=== PATIENT | female | born 1955 | race Caucasian/White ===

== ENCOUNTER → 2022-09-24 | Outpatient (CLI) | payer MEDICARE, BC ==
--- NOTE | 2022-09-24 14:37 | US ---
EXAMINATION TYPE: US kidneys/renal and bladder DATE OF EXAM: 09/24/2022 COMPARISON: NONE CLINICAL HISTORY: R31.9 HEMATURIA. EXAM MEASUREMENTS: Right Kidney: 10.5 x 4.1 x 6.3 cm Left Kidney: 9.9 x 4.4 x 4.9 cm Right Kidney: No hydronephrosis or masses seen Left Kidney: No hydronephrosis or masses seen Bladder: wnl Bilateral Jets seen: Yes There is no evidence for hydronephrosis at this point in time. No nephrolithiasis is seen. No javad s are identified. The urinary bladder is anechoic. Bilateral ureteral jets are seen. IMPRESSION: Unremarkable study
== END | disposition home or self-care (01) ==
LOC: RADUSWWP 14:14
PROVIDERS: ATTEND Family Medicine
DX: R31.9 Hematuria, unspecified (principal)
CPT/HCPCS: 76770

== ENCOUNTER → 2023-03-31 | Outpatient (CLI) | payer MEDICARE, BC ==
--- NOTE | 2023-03-31 13:20 | CTL ---
EXAMINATION TYPE: CT Low Dose Lung DATE OF EXAM: 03/31/2023 12:51 PM CLINICAL INDICATION:Female, 67 years old with history of Z87.891 PERSONAL HISTORY OF NICOTINE DEPENDE NCE; Personal history of nicotine dependence , history of tobacco use. COMPARISON: None. TECHNIQUE: Multiple axial non-contrast scans were obtained from approximately the lung apices through the upper abdomen. Coronal and sagittal reformatted images were obtained. Low dose technique was uti lized. CT DLP: 65 mGycm, Automated exposure control for dose reduction was used. CT Contrast: Contrast used: None Oral contrast used: None FINDINGS: ======== Lack of intravenous contrast and low dose technique limits the evaluation of the vascular and soft ti ssue structures. LUNGS: No evidence of pulmonary fibrosis. No evidence of focal consolidation, pneumothorax or pleural effusion. Mild emphysema changes are seen throughout the lungs. Nodules: RUL: 4 mm pulmonary nodule series 3 image 122. RML: None. RLL: None. SHANE: Calcified granuloma series 3 image 88 measuring 4 mm. Elongated 4 x 3 mm pulmonary nodule se junaid 3 image 48, Additional other scattered sub-4 mm pulmonary nodules. LLL: None. AIRWAY: Patent and unremarkable. HEART: Size within normal limits. MEDIASTINUM: No gross evidence of adenopathy. VASCULATURE: No aortic aneurysm. MUSCULOSKELETAL: No acute osseous abnormalities SOFT TISSUES/LYMPH NODES: Unremarkable. LOWER NECK: No significant findings. UPPER ABDOMEN: No significant findings. IMPRESSION: 1. No clinically significant pulmonary nodules. One is noted 2. Mild emphysema CT LUNG RAD AND CT CHEST RECOMMENDATION: Lung-Rad 2 Benign Appearance or Behavior: Continue annual sc reening with LDCT in 12 months. S Modifier (other clinically significant findings): None Recommend smoking cessation (if current smoker), or continuation of smoking cessation (if prior smoke r). Annual screening for lung cancer with low-dose computed tomography is recommended in adults ages 55 to 77 years who have a 30 pack-year smoking history and currently smoke or have quit within the pa st 15 years. Screening should be discontinued once a person has not smoked for 15 years or develops a health problem that substantially limits life expectancy or the ability or willingness to have curat antonio lung surgery. Lung rads 2021 [email or web address]
== END | disposition home or self-care (01) ==
LOC: RADCTMAIN 12:14
PROVIDERS: ATTEND Family Medicine
DX: Z12.2 Encounter for screening for malignant neoplasm of respiratory organs (principal); J43.9 Emphysema, unspecified; F17.210 Nicotine dependence, cigarettes, uncomplicated
CPT/HCPCS: 71271

== ENCOUNTER → 2024-04-06 | Outpatient (CLI) | payer MEDICARE, BC ==
--- NOTE | 2024-04-06 17:22 | US ---
EXAMINATION TYPE: US thyroid st tissue head/neck DATE OF EXAM: 04/06/2024 COMPARISON: NONE CLINICAL INDICATION: Female, 68 years old with history of E04.1 NONTOXIC SINGLE THYROID NODULE; Follo w up thyroid nodules per patient. Not on meds. GLAND SIZE: Right Lobe: 4.8 x 1.7 x 1.4 cm Overall Parenchyma: homogeneous Left Lobe: 4.4 x 1.7 x 1.2 cm Overall Parenchyma: homogeneous Isthmus Thickness: 0.1 cm NODULES RIGHT: # of nodules measured on right: 2- largest measured 1. 1.3 X 1.0 x 0.8 cm, mid lateral, solid or almost completely solid, hypoechoic nodule, which is w ider than tall, with smooth margins, with echogenic foci. TR 5. Prior size: No prior here 2. 0.7 X 0.7 x 0.7 cm, lower medial, solid or almost completely solid, hypoechoic nodule, which is wider than tall, with smooth margins, with echogenic foci. TR 5. Prior size: No prior here LEFT: # of nodules measured on left: 1 1. 0.4 X 0.4 x 0.2 cm, lower lateral, solid or almost completely solid, hypoechoic nodule, which is wider than tall, with smooth margins, without echogenic foci. TR 4. Prior size: No prior here ISTHMUS: # of nodules measured in the isthmus: 1 1. 0.5 X 0.4 x 0.2 cm mixed cystic and solid, hypoechoic nodule, which is wider than tall, with smo oth margins, without echogenic foci. TR 3. Prior size: No prior here Bilateral neck scanned, no evidence of lymphadenopathy. IMPRESSION: Multinodular thyroid gland as described above. Correlation with prior imaging is recommended to asses s for interval change. If no previous sampling was performed, recommend FNA of right mid lateral TR 5 1.3 cm nodule. Additionally, follow-up ultrasound in one year is recommended.
== END | disposition home or self-care (01) ==
LOC: RADUSWWP 14:46
PROVIDERS: ATTEND Family Medicine
DX: Z12.2 Encounter for screening for malignant neoplasm of respiratory organs (principal); E04.1 Nontoxic single thyroid nodule
CPT/HCPCS: 76536

== ENCOUNTER → 2024-04-17 | Day surgery (SDC) | payer MEDICARE, BC ==
[2024-04-17 14:27] VITALS: RESP 18; TEMP 98
--- NOTE | 2024-04-17 21:00 | US ---
EXAMINATION TYPE: US FNA thyroid first lesion DATE OF EXAM: 04/17/2024 2:37 PM CLINICAL INDICATION:Female, 68 years old with history of E04.1 NONTOXIC SINGLE THYROID NODULE; thyroi d nodule. COMPARISON: Thyroid 04/06/2024 ATTENDING: Dr. Levy Scott PROCEDURE: Informed consent was obtained. The risks and benefits of the procedure were discussed with the patien t. The site was marked. Timeout procedure was performed Ultrasound imaging of the thyroid demonstrates right thyroid The patient was prepped, draped in the usual sterile fashion, and locally anesthetized with 1% lidoca ine. Five fine needle aspiration were then performed with a 25 gauge needle. [facility]. Patient tolerated the procedure without incident and wa s sent home in stable condition. IMPRESSION: Successful ultrasound guided fine needle aspiration.
[2024-04-18 09:43] VITALS: BP 130/78; PULSE 76
== END ==
LOC: RADPROMAIN 12:14
PROVIDERS: ATTEND Family Medicine
DX: E04.1 Nontoxic single thyroid nodule (principal)
CPT/HCPCS: 10005; 88173; 88305

== ENCOUNTER → 2025-05-17 | Outpatient (CLI) | payer BC, MEDICARE ==
--- NOTE | 2025-05-17 14:03 | CTL ---
EXAMINATION TYPE: CT Low Dose Lung DATE OF EXAM ORDERED: 05/17/2025 COMPARISON: 03/31/2023 CLINICAL INDICATION: Female, 69 years old with history of Z12.2 SCREENING; [facility], current smoker 1PPDx 47years., Lung cancer screening, History of Smoking/tobacco use. TECHNIQUE: Low dose computed tomography scan was performed through the chest at 1 mm thick sections a nd reconstructed images in multiple planes at 1 mm and [address] DLP: [address] CTDI: 1.57 mGy Automated exposure control for dose reduction was used. CT DIAGNOSTIC QUALITY: Satisfactory FINDINGS: Findings: There is a new pleural-based juxtapleural nodule in the right lower lobe posteriorly, 12.7 mm in grea test dimension. A second pleural parenchymal density is seen in the right lower lobe laterally. These most likely represent areas of pleural-parenchymal scarring possibly round atelectasis however they were not present on the prior study. Malignancy although felt to be less likely is not entirely exclu ded. There are single stable sub-5 mm nodules in the upper lobes. There are a few scattered micronodu les. There is no lung consolidation or abnormal interstitial density. There is no pleural effusion or pneumothorax. The great vessels and heart are normal in size. There is no mediastinal, hilar or axillary adenopathy. Limited scanning through the upper abdomen reveals no gross abnormality. There are no focal osseous lesions. IMPRESSION: 1. Lung RADS category 4B. 3 month follow-up CT thorax is recommended to confirm stability of the juxt apleural nodules in the right lung base.. 2. No acute cardiopulmonary disease. [facility], , 05/17/2025 2:00 PM
--- NOTE | 2025-05-21 09:59 | MM ---
Reason for Exam: Screening (asymptomatic). Last mammogram was performed 1 year(s) and 10 month(s) ago. Patient History: Menarche at age 18. First Full-Term at age 25. Left ovary removed at age 42. Right ovary removed at age 42. Hysterectomy at age 42. Postmenopausal. Mother had breast cancer, age 75. Risk Values: Shannon 5 year model risk: 3.0%. NCI Lifetime model risk: 9.9%. Prior Study Comparison: 03/21/2015 Bilateral Screening Mammogram, [facility]. 07/21/2023 Bilateral Screening Mammogram, [facility]. Tissue Density: The breasts are heterogeneously dense, which may obscure small masses. Findings: Analyzed By CAD. Right breast: There is no suspicious group of microcalcifications or new suspicious mass. Benign-appearing calcifications right breast. Left breast: There is no suspicious group of microcalcifications or new suspicious mass. Benign-appearing calcifications left breast. Overall Assessment: Benign, BI-RAD 2 Management: Screening Mammogram of both breasts in [address] [facility] will attempt to contact patient to return for supplemental views and ultrasound if indicated. Patient should continue monthly self-breast exams. A clinical breast exam by your physician is recommended on an annual basis. This exam should not preclude additional follow-up of suspicious palpable abnormalities. Note on Shannon scores and lifetime risk: 1. A Shannon score greater than 3% is considered moderate risk. If this is the case, consider specialist referral to assess eligibility for a risk reducing agent. 2. If overall lifetime risk for the development of breast cancer is 20% or higher, the patient may qualify for future screening with alternating mammogram and breast MRI. [facility], , 05/21/2025 9:56 AM. Electronically signed and approved by: Levy Scott DO
== END | disposition home or self-care (01) ==
LOC: RADCTMAIN 13:23
PROVIDERS: ATTEND Family Medicine
DX: Z12.31 Encounter for screening mammogram for malignant neoplasm of breast (principal); Z12.2 Encounter for screening for malignant neoplasm of respiratory organs; R92.333 Mammographic heterogeneous density, bilateral breasts; F17.210 Nicotine dependence, cigarettes, uncomplicated; Z78.0 Asymptomatic menopausal state; Z80.3 Family history of malignant neoplasm of breast
CPT/HCPCS: 71271; 77063; 77067